=== PATIENT | female | born 1955 | race Caucasian/White ===

== ENCOUNTER 2016-05-29 18:05 | Inpatient (IN) | payer OTHER, MEDICARE ==
[~2016-05-29] VITALS: Ht 167.6 cm; Wt 110.4 kg
--- NOTE | 2016-05-29 18:48 | ED PSYCHIATRIC COMPLAINT ---
History of Present Illness General Chief Complaint: Psychiatric Related Complaint Stated Complaint: + SI Source: patient, family Exam Limitations: no limitations Vital Signs & Intake/Output Vital Signs & Intake/Output Vital Signs Date Time Temp Pulse Resp B/P Pulse O2 O2 Flow FiO2 Ox Delivery Rate 05/29 2024 Room Air 05/29 1811 97.1 100 18 119/78 98 Room Air Allergies Coded Allergies: hydrocodone (UNKNOWN 06/08/15) methylprednisolone (UNKNOWN 06/08/15) morphine (SWELLING 06/08/15) pantoprazole (UNKNOWN 06/08/15) Reconcile Medications No Known Home Medications Triage Note: PT STATES ALL DAY LONG SHE WAS FEELING SUICIDAL AND WAS TRYING TO FIND A WAY TO HANG HERSELF. PT STATES THE FEELINGS HAPPEN ON AND OFF BUT TODAY THEY ARE JUST OVERWHELMING. PT CRYING IN TRIAGE. PT STATES SHE WENT TO GROUP TODAY AND CAN'T REMEMBER ONE THING THAT MADE HER FEEL DOWN. DGT STATES SHE GOES TO GROUP AND TAKES IN ALL OF THE OTHER SAD STORIES AND NEVER EXPRESSES HER OWN AND THEN FEELS WORSE WHEN SHE LEAVES. PT DENIES HI. PT SENT HER DGT A MESSAGE SAYING HOW SHE WAS TRYING TO FIGURE OUT HOW TO HANG HERSELF ALL DAY AND THAT SHE WANTED TO GO TO THE HOSPITAL. Triage Nurses Notes Reviewed? yes HPI: Patient presents with increasing depression and suicidal ideations. Patient goes to [facility] here at [place] and began to think of different ways that she could hang herself. Patient's last admission was in August. Patient denies any homicidal ideations. Patient states that she sits in group and just listens to. Other people and she gets more more depressed. Patient denies any hallucinations. Patient has not attempted to hurt herself. Past History Travel History Traveled to [place] past 21 day No Medical History Any Pertinent Medical History? see below for history Psychiatric: bipolar disease, depression Endocrine: diabetes, hypothyroidism Surgical History Surgical History: non-contributory Psychosocial History What is your primary language Lithuanian Tobacco Use: Never used ETOH Use: denies use Illicit Drug Use: denies illicit drug use Family History Hx Contributory? No Review of Systems Review of Systems Constitutional: Reports: no symptoms. EENTM: Reports: no symptoms. Respiratory: Reports: no symptoms. Cardiovascular: Reports: no symptoms. GI: Reports: no symptoms. Genitourinary: Reports: no symptoms. Musculoskeletal: Reports: no symptoms. Skin: Reports: no symptoms. Neurological/Psychological: Reports: see HPI, depressed. Hematologic/Endocrine: Reports: no symptoms. Immunologic/Allergic: Reports: no symptoms. All Other Systems: Reviewed and Negative Physical Exam Physical Exam General Appearance: well developed/nourished, mild distress Head: atraumatic Eyes: Bilateral: PERRL, EOMI. Ears, Nose, Throat: normal pharynx, normal ENT inspection, hearing grossly normal Neck: normal inspection, supple Respiratory: normal breath sounds Cardiovascular: regular rate/rhythm Gastrointestinal: soft, non-tender Extremities: normal range of motion Neurological/Psychiatric: no motor/sensory deficits, awake, alert, normal mood/ affect, calm, oriented x 3 Appearance/Memory/Insight: appropriate appearance, appropriate insight Behavoir/Eye Contact/Speech: cooperative, normal speech, good eye contact Thoughts/Hallucinations: normal thought pattern, no apparent hallucination Skin: intact, normal color, warm/dry SAD PERSONS Done? CRISIS CONSULT OBTAINED Progress Differential Diagnosis: drug intoxication, drug overdose, drug withdrawal, electrolyte abnormality Plan of Care: Orders Procedure Date/time Status Admit to inpatient psych 05/29 2216 Active Continuous Observation Monitor 05/29 1820 Active URINE DRUGS OF ABUSE 05/29 1820 Complete ETHANOL 05/29 1820 Complete COMPREHENSIVE METABOLIC PANEL 05/29 1820 Complete CBC WITHOUT DIFFERENTIAL 05/29 1820 Complete ED CRISIS PSYCH CONSULT 05/29 1820 Active Laboratory Tests 05/29/162109: Urine Opiates Screen < 100.00, Methadone Screen < 40, Barbiturate Screen < 60, Ur Phencyclidine Scrn < 6.00, Amphetamines Screen < 100, U Benzodiazepines Scrn < 85, Urine Cocaine Screen < 50, Urine Cannabis Screen < 5.00 05/29/161955: Anion Gap 12, Estimated GFR 46 L, BUN/Creatinine Ratio 16.7, Glucose 162 H, Calcium 10.1, Total Bilirubin 0.4, AST 17, ALT 37, Alkaline Phosphatase 100, Total Protein 7.1, Albumin 4.3, Globulin 2.8, Albumin/Globulin Ratio 1.5, CBC w Diff NO MAN DIFF REQ, RBC 4.31, MCV 88.4, MCH 29.4, RDW 13.3, MPV 9.0, Gran % 70.8, Lymphocytes % 21.9, Monocytes % 5.5, Eosinophils % 1.3, Basophils % 0.5, Absolute Granulocytes 8.2 H, Absolute Lymphocytes 2.5, Absolute Monocytes 0.6, Absolute Eosinophils 0.2, Absolute Basophils 0.1, PUBS MCHC 33.2, Serum Alcohol < 10.0 Departure Departure Disposition: STILL A PATIENT Condition: Stable Clinical Impression Primary Impression: Depression Secondary Impressions: Suicidal ideation Referrals: TREY DIEGO MD (PCP/Family) Departure Forms: Customer Survey General Discharge Information Prescriptions: Current Visit Scripts No Known Home Medications Psych Admission Note Psychiatric Admission: I have seen and evaluated YARIEL TRIMBLE. I have also reviewed all the pertinent lab results and diagnostic results. YARIEL TRIMBLE will be admitted to our inpatient Psychiatric unit for treatment and care.
[2016-05-29 20:16] LABS: ABSOLUTE BASOPHIL COUNT 0.1 /CUMM (0.0-0.2); ABSOLUTE EOSINOPHIL COUNT 0.2 /CUMM (0.0-0.7); ABSOLUTE GRANULOCYTE CT 8.2 /CUMM (1.4-6.5); ABSOLUTE LYMPH COUNT 2.5 /CUMM (1.2-3.4); ABSOLUTE MONOCYTE COUNT 0.6 /CUMM (0.10-0.60); BASOPHIL % 0.5 % (0.0-2.0); EOSINOPHIL % 1.3 % (0-5); GRANULOCYTE % 70.8 % (42.2-75.2); HEMATOCRIT 38.1 % (37-47); MEAN CORPUSCULAR HGB 29.4 PG (27.0-31.0); MEAN CORPUSCULAR HGB CONC 33.2 G/DL (33.0-37.0); MEAN CORPUSCULAR VOLUME 88.4 FL (81.0-99.0); PLATELET COUNT 340 /CUMM (130-400); RBC DISTRIBUTION WIDTH 13.3 % (11.5-14.5); RED BLOOD CELL CT 4.31 /CUMM (4.20-5.40); WHITE BLOOD CELL COUNT 11.6 /CUMM (4.8-10.8)
--- NOTE | 2016-05-29 22:40 | ED PSYCH CRISIS CONSULTATION ---
Crisis Consult Basic Assessment Date of Consult: 05/29/16 Responsible Person/Accompanied By: self/daughter Sonali Insurance Authorization: Insurance #1: Insurance name: MEDICARE A Phone number: Policy number: [id number] Group number: Authorization number: ED Provider: Patient's ED Provider: ANG IQBAL,NATALIA Harry Primary Care Physician: Patient's PCP: JOHNATHON IQBAL,TREY Flynn PCP's Current Psychiatrist: Gopal Cruz APRN Chief Complaint: Psychiatric Related Complaint Patient's Quote: I don't want to be here anymore Present Illness: Pt is a 61 yo female presenting at [place] ED this evening accompanied by her daughter with c/o increased depression and suicidal ideation. pt had been texting daughter this afternoon that she was researching how to hang herself. Pt has a hx of several inpatient psychiatric hospitalizations due to suicide attempt. Pt was inpatient at [facility] in 2002 and 2006 and was most recently inpatient at [place] in September 2015. Pt is currently active in [facility] since september 2015. Pt reports chronic on and off SI but past 2 days thoughts to kill self have been strong. she reports feeling depressed, anxious, helpless and hopeless. Pt reports having a lot to live for nikolai having her 3 grandchildren living near by but she continues to think about not 'wanting to be here anymore ". Pt presents as distraught/tearful, alert, cooperative and OX3. Pt denies drug and alcohol use. Pt reports attending group tx today but becomes more depressed when hearing about other patients depressing stories. Pt wants a voluntary admission. Patient's Address: [address] [place] [address] Other Phone Number: Who Do You Live With? Patient/Self Family/Informants Interviewed: daughter sonali [phone]. Crisis left message on her answering machine. Allergies - Coded Allergies: hydrocodone (UNKNOWN 06/08/15) methylprednisolone (UNKNOWN 06/08/15) morphine (SWELLING 06/08/15) pantoprazole (UNKNOWN 06/08/15) Current Medications - No Known Home Medications Laboratory Results: Laboratory Tests 05/29/16 2110: Urine Opiates Screen < 100.00, Methadone Screen < 40, Barbiturate Screen < 60, Ur Phencyclidine Scrn < 6.00, Amphetamines Screen < 100, U Benzodiazepines Scrn < 85, Urine Cocaine Screen < 50, Urine Cannabis Screen < 5.00 05/29/161955: Anion Gap 12, Estimated GFR 46 L, BUN/Creatinine Ratio 16.7, Glucose 162 H, Calcium 10.1, Total Bilirubin 0.4, AST 17, ALT 37, Alkaline Phosphatase 100, Total Protein 7.1, Albumin 4.3, Globulin 2.8, Albumin/Globulin Ratio 1.5, CBC w Diff NO MAN DIFF REQ, RBC 4.31, MCV 88.4, MCH 29.4, RDW 13.3, MPV 9.0, Gran % 70.8, Lymphocytes % 21.9, Monocytes % 5.5, Eosinophils % 1.3, Basophils % 0.5, Absolute Granulocytes 8.2 H, Absolute Lymphocytes 2.5, Absolute Monocytes 0.6, Absolute Eosinophils 0.2, Absolute Basophils 0.1, PUBS MCHC 33.2, Serum Alcohol < 10.0 Past History Past Medical History Psychiatric: bipolar disease, depression Endocrine: diabetes, hypothyroidism Past Surgical History Surgical History: non-contributory Psychosocial History Strengths/Capabilities: active with grandchildren/engaged with [facility] Psychiatric Treatment History Psych Treatment Psychiatric Treatment Yes Inpatient Treatment Yes Outpatient Treatment Yes Location of Treatment [facility] Reason for Treatment Major depression, SI/attempts hx Dates of Treatment [facility] 2002, 2006. [place] September 2015; [facility] September 2015-presen Response to Treatment chronic on and off SI. recent increase in depression, anxiety and hopelessness. Diagnosis by History: Major depressive D/o Substance Use/Abuse History Drug Use/Abuse Substances Used/Abused No Substance Abuse Treatment Substance Abuse Treatment Past Substance Abuse [place] No Comments: pt denies drug and alcohol use. Current Mental Status Mental Status Orientation: Person, Place, Situation Affect: Depressed Speech: WNL Neuro-vegetative: Anhedonia, Appetite Decreased, Energy Decreased, Helpless, Sleep Disturbance Appearance Appearance- Dress/Hygiene: hospital scrubs. sitting up in bed during consult. tearful. Good eye contact Behaviors Thought Process: WNL Thought Content: WNL Memory: WNL Insight: Fair SI/HI Risk Assessment Past Suicidal Ideation/Attempts Yes Current Suicidal Ideation/Att Yes Past Homicidal Ideation/Att: No Current Homicidal Ideation/Attempts No Degree of Intent: States Intent Danger To: Self Gravely Disabled: Poor Impulse Control, Poor Judgment Risk Factors: chronic/serious med cond., high anxiety/distress, history of suicide atmpts, SA/MH hospitalized, isolate/no social support, poor impulse control, lives alone Lethality Ratin PTSD Checklist PTSD Done? patient declined ED Management Sitter: Yes Restraints: No DSM5/PS Stressors/Medical Prob Diagnosis' (DSM 5, Stressors, Medical): Major Depressive D/O (F33.2) diabetis thyroid Current GAF: 25 Comments: pt reports increased suicidal thoughts past 2 days. pt reports plan to hang her self. pt reports "I have so much to live for and i don't want to live' Departure Disposition Psych Medical Clearance Date: 05/29/16 Medically Cleared at: 2129 Time Started: 2134 Time Ended: 2214 Psychiatrist Consulted: Berna IQBAL,Ben Date Disposition Established: 05/29/16 Time Disposition Established: 2219 Plan for Disposition - Modality: Inpatient Psychiatry Facility: [facility] Rationale for Disposition: Pt to be admitted to [facility] due to active suicidal ideation. pt researching today how to hang self. Pt has multiple suicide attempts by hx. Type of IP Admission: PEC Referrals JOHNATHON IQBAL,TREY Flynn (PCP/Family)
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
[2016-05-30] VITALS: BP 117/69
[2016-05-30] MEDS ORDERED: LISINOPRIL-HCT1 EAC2 PO (00:17)
[2016-05-30] MEDS ORDERED: CLONAZEPAM0.5 M2 PO (00:18)
[2016-05-30] MEDS ORDERED: PERPHENAZINE8 M1 PO (00:20)
[2016-05-30] MEDS ORDERED: PERPHENAZINE4 M1 PO (00:21)
[2016-05-30] MEDS ORDERED: LAMOTRIGINE150 M1 PO (00:22)
[2016-05-30] MEDS ORDERED: VALACYCLOVIR500 M1 PO (00:23)
[2016-05-30] MEDS ORDERED: LEVOTHYROXINE125 MCG PO (00:24)
[2016-05-30] MEDS ORDERED: GLIMEPIRIDE4 M1 PO (00:24)
[2016-05-30] MEDS ORDERED: METFORMIN HCL1000 M1 PO (00:25)
[2016-05-30] MEDS ORDERED: ANASTROZOLE1 M1 PO (00:26)
[2016-05-30] MEDS ORDERED: PRAVASTATIN SOD40 M2 PO (00:27)
[2016-05-30 07:57] VITALS: BP 154/70
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
[2016-05-30 12:22] VITALS: BP 127/66
--- NOTE | 2016-05-30 13:06 | History & Physical ---
General Information and HPI MD Statement: I have seen and personally examined YARIEL TRIMBLE and documented this H&P. The patient is a 61 year old F who presented with a patient stated chief complaint of "feeling suicidal all day". Source of Information: patient Exam Limitations: no limitations History of Present Illness: 61-year-old white female with history of depression and suicidal attempts and ideations in the past her last admission to an inpatient unit was in September 2015 since then going to [facility] for meetings often and she has had this Cissell feelings but for the last day also a much more intense and she was trying to find a way to hang herself or overdose reason she came to the ER where she was crying, she was evaluated and admitted Allergies/Medications Allergies: Coded Allergies: hydrocodone (UNKNOWN 06/08/15) methylprednisolone (UNKNOWN 06/08/15) morphine (SWELLING 06/08/15) pantoprazole (UNKNOWN 06/08/15) Home Med list Anastrozole 1 MG TABLET 1 MG PO DAILY IMMUNOSUPPRESSANT (Reported) Clonazepam 0.5 MG TABLET 0.5 MG PO 7:30 AM, & 4:30 PM ANXIETY (Reported) Glimepiride 4 MG TABLET 4 MG PO DAILY DIABETES (Reported) Lamotrigine 150 MG TABLET 150 MG PO QHS MENTAL HEALTH (Reported) Levothyroxine Sodium 125 MCG TABLET 125 MCG PO DAILY THYROID PROBLEMS ( Reported) Lisinopril/Hydrochlorothiazide (Lisinopril-Hctz 10-12.5 MG Tab) 10 MG-12.5 MG TABLET 1 TAB PO DAILY HIGH BLOOD PRESSURE (Reported) Metformin HCl 1,000 MG TABLET 1,000 MG PO 0800 & 1700 DIABETES (Reported) Perphenazine 8 MG TABLET 8 MG PO QHS MENTAL HEALTH (Reported) Perphenazine 4 MG TABLET 4 MG PO DAILY MENTAL HEALTH (Reported) Pravastatin Sodium 40 MG TABLET 40 TAB PO QPM HIGH CHOLESTROL (Reported) Valacyclovir HCl (Valacyclovir) 500 MG TABLET 500 MG PO DAILY SKIN PROBLEMS ( Reported) Compliance With Home Meds: GOOD Past History Travel History Traveled to [place] past 21 day No Medical History Neurological: NONE EENT: NONE Cardiovascular: hypertension Respiratory: NONE Gastrointestinal: NONE Hepatic: NONE Renal: NONE Musculoskeletal: NONE Psychiatric: bipolar disease, depression Endocrine: diabetes, hypothyroidism Blood Disorders: NONE Cancer(s): breast cancer 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 Home ETOH Use: denies use Illicit Drug Use: denies illicit drug use Employment History Employment Disability Review of Systems Review of Systems Constitutional: Reports: see HPI. Exam & Diagnostic Data Last 24 Hrs of Vital Signs/I&O Vital Signs Date Time Temp Pulse Resp B/P Pulse O2 O2 Flow FiO2 Ox Delivery Rate 05/30 1222 92 127/66 05/30 0803 97.6 93 16 154/70 05/30 0757 97.6 93 154/70 05/30 0000 96.8 84 117/69 05/29 2247 97.9 91 16 128/67 98 Room Air 05/29 2024 Room Air 05/29 1811 97.1 100 18 119/78 98 Room Air Intake & Output 05/30 1600 05/30 0800 05/30 0000 Intake Total Output Total Balance Patient 243 lb 243 lb Weight Physical Exam General Appearance Alert, Oriented X3, Cooperative, No Acute Distress Skin No Rashes HEENT Atraumatic, PERRLA, EOMI, Mucous Membr. moist/pink Neck Supple, No JVD Lymphatic Axillary nl, Cervical nl Cardiovascular Regular Rate, with a murmur Lungs Clear to Auscultation Abdomen Normal Bowel Sounds, Soft, No Tenderness, No Hepatospenomegaly, No Masses Neurological Exam Findings: Normal Gait, Normal Speech, Strength at 5/5 X4 Ext, Normal Tone, Sensation Intact, Cranial Nerves 3-12 NL, Reflexes 2+ Cranial Nerves II through XII: Intact Extremities No Edema, Normal Pulses, No Tenderness/Swelling Last 24 Hrs of Labs/Joseph: Laboratory Tests 05/29/162109: Urine Opiates Screen < 100.00, Methadone Screen < 40, Barbiturate Screen < 60, Ur Phencyclidine Scrn < 6.00, Amphetamines Screen < 100, U Benzodiazepines Scrn < 85, Urine Cocaine Screen < 50, Urine Cannabis Screen < 5.00 05/29/161955: Anion Gap 12, Estimated GFR 46 L, BUN/Creatinine Ratio 16.7, Glucose 162 H, Hemoglobin A1c 7.1 H, Calcium 10.1, Total Bilirubin 0.4, AST 17, ALT 37, Alkaline Phosphatase 100, Total Protein 7.1, Albumin 4.3, Globulin 2.8, Albumin/ Globulin Ratio 1.5, Triglycerides 172 H, Cholesterol 125, LDL Cholesterol, Calc 58 L, HDL Cholesterol 33 L, Cholesterol/HDL Ratio 4, TSH 0.454, Free T4 1.42, Thyroxine (T4) 10.4, CBC w Diff NO MAN DIFF REQ, RBC 4.31, MCV 88.4, MCH 29.4, RDW 13.3, MPV 9.0, Gran % 70.8, Lymphocytes % 21.9, Monocytes % 5.5, Eosinophils % 1.3, Basophils % 0.5, Absolute Granulocytes 8.2 H, Absolute Lymphocytes 2.5, Absolute Monocytes 0.6, Absolute Eosinophils 0.2, Absolute Basophils 0.1, PUBS MCHC 33.2, Serum Alcohol < 10.0 Assessment/Plan As Ranked By This Provider Problem List: 1. Depression 2. Suicidal ideation Miscellaneous Miscellaneous Documentation Attending Case Discussed With: MIC IQBAL,GIO Sol Primary Care Physician: TREY DIEGO MD A Patient sees these Specialists Psychiatry Level of Patient Care: ERIK Tamayo Consults Needed: Consulting Specialty: Psychiatry Consulting Physician: Gio Coronel MD Reason for Consult: depression and suicidal ideations
[2016-05-30 15:56] VITALS: BP 139/67
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
[2016-05-30 19:34] VITALS: BP 125/56
[2016-05-31 07:42] VITALS: BP 108/67
[2016-05-31 12:21] VITALS: BP 147/67
--- NOTE | 2016-05-31 14:31 | SOCIAL WORKER TX PLAN PSYCH ---
Treatment Plan - Please Document: - Evidence that there is ongoing collaboration between - the patient and the interdisciplinary team, - including the patient's active participation and - responsibility for engaging in the treatment regimen, - and that the treatment plan is individualized and - relevant to the patient's conditions. - Treatment plan should reflect documentation indicating - that all active therapeutic efforts are included. Strengths/Capabilities: active with grandchildren/engaged with juan carlos OP Patient Identified Trmt Goals: "I may need a change in medication" Discharge Plan: [facility] with return to home Problem/Goals #1 Problem #1: depression Goal (Short Term): Patient will explore medication changes to help stabilize mood and SI Goal (Senior Living): patient will report diminished thoughts of SI and be able to return home safely. Interventions: patient will be offered medication management with the psychiatrist, groups on symptom management, coping skills, goals group, relaxation, art therapy, accupuncture. Over Short And Damage Clerk will discuss things that make life worth living, hold family meeting and assist with aftercare planning. Modalities: group/ individual DSM5/PS Stressors/Medical Prob Diagnosis' (DSM 5, Stressors, Medical): Major Depressive D/O (F33.2) diabetis thyroid Current GAF: 25 Treatment Team - Responsibilities of members of the treatment team include: - Medication Management- MD or CHIEF OPERATIONS OFFICER - Medication Administration and Monitoring- Nurse - Group Therapy- Occupational Therapist - 1:1 Therapy,Disch Planning,family involvement-Over Short And Damage Clerk
--- NOTE | 2016-05-31 14:31 | SOCIAL WORKER PROG NOTE PSYCH ---
Social Work Progress Note Progress Note Kateryna presented as very tearful and depressed today when we met. She stated she was feeling very down this past week and that's why she wanted to hang herself. She said if she could have figured out a way to do it, she would have. She continues to have thoughts about not wanting to be here, but no specific plan. She feels safe here and contracts for safety. She has a couple of past suicide attempts. One in 2004 and in 2011, both by OD of pills. She lives alone, but spends alot of time with her daughter Windy and her family. Her daughter lives close by. She talked about feeling like a burden to her daughter. She said she is at her house daily, except weekends. She reports weekends being the hardest because she's alone. She reports having difficulty concentrating and diminished interest in hobbies. She talked about interactions with other folks at her apt. building and described alot of "drama" that she doesn't like to get caught up in. She tends to isolate alot. She finds herself getting irritated with others more easily. One goal that she is recently trying to work on in outpatient is getting back to going to sabianism. She would like to go to a sabianism she found, but is scared that someone will ask her how she is doing and she will start to cry. She would find that embarrassing, so she is avoiding it for now. She also fears rejection from others. She is hoping that a change in medication will help and she is open to trying [place]. I told her I would contact her daughter for a family meeting and set something up for Friday if possible. Called Windy Gleason (daughter) and left a message.
[2016-05-31 15:41] VITALS: BP 125/66
--- NOTE | 2016-05-31 16:02 | CP SOUTH PROGRESS NOTE PSYCH ---
Psych (Inpt) Progress Note Progress Note Include the following elements, when applicable: Involvement in the active treatment of the patient with behavioral observations of the patient and the patient's response to the treatment. Review of the ongoing treatment process in the context of the treatment plan. Indication of how multi-disciplinary staff members are carrying out the treatment plan. Plans for future interventions and recommendations for revision of the treatment plan. Liaison with other physicians/providers. Progress Note: PSYCHIATRIST NOTE, 05/31/2016: I discussed this patient's progress thus far, current mental status, treatment and discharge planning with staff team today in the daily morning ITTM and also met with her again myself in individual session. Patient noted feeling a little better, more hopeful, but is still depressed, anergic. Patient denied any side effects, overstimulation on initial low dose of Wellbutrin. She had denied feeling uncomfortably over-activated, shaky/tremulous, said she felt helped by it in recent past but dose may have been too high; we went over again the risks of precipitating hypomania, mood cycling, sleep difficulties, etc., and agreed to keep dose at current low level over the coming weekend. She had tolerated initial 150mg doses of Liithium and agreed to increase for augmentation purposes over the coming weekend to 150mg 3x/day with level in AM .
[2016-05-31 19:46] VITALS: BP 117/59
[2016-06-01 07:47] VITALS: BP 140/77
[2016-06-01 12:07] VITALS: BP 125/63
[2016-06-01 16:00] VITALS: BP 120/70
--- NOTE | 2016-06-01 17:07 | CP SOUTH PROGRESS NOTE PSYCH ---
Psych (Inpt) Progress Note Progress Note Include the following elements, when applicable: Involvement in the active treatment of the patient with behavioral observations of the patient and the patient's response to the treatment. Review of the ongoing treatment process in the context of the treatment plan. Indication of how multi-disciplinary staff members are carrying out the treatment plan. Plans for future interventions and recommendations for revision of the treatment plan. Liaison with other physicians/providers. Progress Note: Pt requested to be tapered off the klonopin. She notes that she is "better good " overall with improved mood. Denies SI or HI. Slept well. Current Medications Sig/Brigid Start time Last Medication Dose Route Stop Time Status Admin Anastrozole 1 MG DAILY 05/30 1000 AC 06/01 PO 0745 Bupropion HCl 100 MG 05/31 08 AC 06/01 PO 0745 Clonazepam 0.5 MG .[4:30PM] 06/02 1630 UNVr PO 06/09 1629 Clonazepam 0.25 MG .[AT 730AM] 06/01 1715 UNVr PO 06/08 1714 Clonazepam 0.5 MG 7:30 AM, & 4:30 PM 05/30 729 DC 06/01 PO 06/06 0729 1637 Glimepiride 4 MG 05/30 AC 06/01 PO 0743 Lamotrigine 150 MG 05/30 0115 AC 05/31 PO 2113 Levothyroxine Sodium 0.125 MG DAILY AC 05/30 07 AC 06/01 PO 0633 Lisinopril 10 MG 05/30 08 AC 06/01 PO 0744 [place] Carbonate 150 MG 0800,1400,06/02 08 AC PO [place] Carbonate 150 MG 0800,06/01 0800 AC 06/01 PO 06/01 2000 0743 [place] Carbonate 150 MG ONCE ONE 06/01 1999 DC 05/31 PO 05/31 Metformin HCl 1,000 MG 0800 & 1700 05/30 08 AC 06/01 PO 1637 Perphenazine 4 MG 05/30 08 AC 06/01 PO 0744 Perphenazine 8 MG 05/30 010 AC 05/31 PO 2114 Perphenazine 2 MG Q6H PRN 05/30 010 AC PO Pravastatin Sodium 40 MG 05/30 220 AC 05/31 PO 2114 Valacyclovir HCl 500 MG DAILY 05/30 1000 AC 06/01 PO 0745 Laboratory Tests 05/29 Chemistry Sodium (137 - 145 mmol/L) 134 L Potassium (3.5 - 5.1 mmol/L) 4.5 Chloride (98 - 107 mmol/L) 95 L Carbon Dioxide (22 - 30 mmol/L) 27 Anion Gap (5 - 16) 12 BUN (7 - 17 mg/dL) 20 H Creatinine (0.5 - 1.0 mg/dL) 1.2 H Estimated GFR (>60 ml/min) 46 L BUN/Creatinine Ratio (7 - 25 %) 16.7 Glucose (65 - 99 mg/dL) 162 H Hemoglobin A1c (4.2 - 5.8 %) 7.1 H Calcium (8.4 - 10.2 mg/dL) 10.1 Total Bilirubin (0.2 - 1.3 mg/dL) 0.4 AST (14 - 36 U/L) 17 ALT (9 - 52 U/L) 37 Alkaline Phosphatase (<127 U/L) 100 Total Protein (6.3 - 8.2 g/dL) 7.1 Albumin (3.5 - 5.0 g/dL) 4.3 Globulin (1.9 - 4.2 gm/dL) 2.8 Albumin/Globulin Ratio (1.1 - 2.2 %) 1.5 Triglycerides (<150 mg/dL) 172 H Cholesterol (<200 MG/DL) 125 LDL Cholesterol, Calc (65 - 129 mg/dL) 58 L HDL Cholesterol (40 - 60 mg/dL) 33 L Cholesterol/HDL Ratio (0.00 - 4.23 %) 4 TSH (0.270 - 4.200 uIU/mL) 0.454 Free T4 (0.64 - 1.79 ng/dL) 1.42 Thyroxine (T4) (4.5 - 10.9 ug/dL) 10.4 Hematology CBC w Diff NO MAN DIFF REQ WBC (4.8 - 10.8 /CUMM) 11.6 H RBC (4.20 - 5.40 /CUMM) 4.31 Hgb (12.0 - 16.0 G/DL) 12.7 Hct (37 - 47 %) 38.1 MCV (81.0 - 99.0 FL) 88.4 MCH (27.0 - 31.0 PG) 29.4 RDW (11.5 - 14.5 %) 13.3 Plt Count (130 - 400 /CUMM) 340 MPV (7.4 - 10.4 FL) 9.0 Gran % (42.2 - 75.2 %) 70.8 Lymphocytes % (20.5 - 51.1 %) 21.9 Monocytes % (1.7 - 9.3 %) 5.5 Eosinophils % (0 - 5 %) 1.3 Basophils % (0.0 - 2.0 %) 0.5 Absolute Granulocytes (1.4 - 6.5 /CUMM) 8.2 H Absolute Lymphocytes (1.2 - 3.4 /CUMM) 2.5 Absolute Monocytes (0.10 - 0.60 /CUMM) 0.6 Absolute Eosinophils (0.0 - 0.7 /CUMM) 0.2 Absolute Basophils (0.0 - 0.2 /CUMM) 0.1 PUBS MCHC (33.0 - 37.0 G/DL) 33.2 Toxicology Urine Opiates Screen (>2000 NG/ML) < 100.00 Methadone Screen (>300 NG/ML) < 40 Barbiturate Screen (>200 NG/ML) < 60 Ur Phencyclidine Scrn (>25 NG/ML) < 6.00 Amphetamines Screen (>1000 NG/ML) < 100 U Benzodiazepines Scrn (>200 NG/ML) < 85 Urine Cocaine Screen (>300 NG/ML) < 50 Urine Cannabis Screen (>50 NG/ML) < 5.00 Serum Alcohol (<10 MG/DL) < 10.0 Vital Signs Date Time Temp Pulse Resp B/P Pulse O2 O2 Flow FiO2 Ox Delivery Rate 06/01 1600 95 120/70 06/01 1207 83 125/63 06/01 0747 97.8 91 140/77 06/01 0744 98.7 90 16 117/59 05/31 1946 98.7 90 117/59 MSE Appears as stated age. Cooperative behavior, good, appropriate eye contact. Nl speech rate and prosody. No psychomotor retardation or agitation. Mood fine Affect euthymic, constricted, appropriate, non-liable. Linear and goal directed thought process. Denies SI or HI. Does not appear to be responding to internal stimuli. Denies AVHs, paranoia, or delusions. I/J: limited A/P: Pt with MDD with improved mood overall. - Taper klonopin from 0.5mg BID (at 730 and 430) to 0.25mg daily and 0.5mg at 430 - Continue current medication regimen - Repeat labs as slight elevated CBC, elevated Cr at recent lab draw
[2016-06-01 19:26] VITALS: BP 123/62
[2016-06-02 07:32] LABS: ABSOLUTE BASOPHIL COUNT 0 /CUMM (0.0-0.2); ABSOLUTE EOSINOPHIL COUNT 0.1 /CUMM (0.0-0.7); ABSOLUTE GRANULOCYTE CT 4.2 /CUMM (1.4-6.5); ABSOLUTE LYMPH COUNT 1.9 /CUMM (1.2-3.4); ABSOLUTE MONOCYTE COUNT 0.4 /CUMM (0.10-0.60); BASOPHIL % 0.5 % (0.0-2.0); EOSINOPHIL % 2.1 % (0-5); HEMATOCRIT 33.2 % (37-47); MEAN CORPUSCULAR HGB 29.9 PG (27.0-31.0); MEAN CORPUSCULAR HGB CONC 33.7 G/DL (33.0-37.0); MEAN CORPUSCULAR VOLUME 88.7 FL (81.0-99.0); PLATELET COUNT 259 /CUMM (130-400); RBC DISTRIBUTION WIDTH 13.5 % (11.5-14.5); RED BLOOD CELL CT 3.74 /CUMM (4.20-5.40); WHITE BLOOD CELL COUNT 6.7 /CUMM (4.8-10.8)
[2016-06-02 07:39] VITALS: BP 132/70
--- NOTE | 2016-06-02 10:49 | CP SOUTH PROGRESS NOTE PSYCH ---
Psych (Inpt) Progress Note Progress Note Include the following elements, when applicable: Involvement in the active treatment of the patient with behavioral observations of the patient and the patient's response to the treatment. Review of the ongoing treatment process in the context of the treatment plan. Indication of how multi-disciplinary staff members are carrying out the treatment plan. Plans for future interventions and recommendations for revision of the treatment plan. Liaison with other physicians/providers. Progress Note: Pt seen sitting in her room reading on her bed. Initally, she noted that she was fine. When pressed as to how feeling more recently and concerns s/p hospitalization, she became tearful. She stated that she likes being here because she feels that she "can't hurt myself here." However, when discharged, she is sacred that will having +SI again. She plans on leaning on her supports in her Psychiatrist and therapist, that she trusts. In addition, she is close with her daughter and finds her to be a source of support. Denies SI or HI, active or passive. Current Medications Sig/Brigid Start time Last Medication Dose Route Stop Time Status Admin Anastrozole 1 MG DAILY 05/30 1000 AC 06/02 PO 0819 Bupropion HCl 100 MG 05/31 08 AC 06/02 PO 0819 Clonazepam 0.5 MG 1630 06/02 1630 AC PO 06/09 1629 Clonazepam 0.25 MG 06/02 AC 06/02 PO 06/09 0729 0818 Clonazepam 0.5 MG 7:30 AM, & 4:30 PM 05/30 07 DC 06/01 PO 06/06 0729 1637 Glimepiride 4 MG 05/30 08 AC 06/02 PO 0818 Lamotrigine 150 MG 2200 05/30 0115 AC 06/01 PO 2111 Levothyroxine Sodium 0.125 MG DAILY AC 05/30 07 AC 06/02 PO 0631 Lisinopril 10 MG 05/30 08 AC 06/02 PO 0819 [place] Carbonate 150 MG 0800,1399,06/02 AC 06/02 PO 0819 [place] Carbonate 150 MG 0800,06/01 0800 DC 06/01 PO 06/01 Metformin HCl 1,000 MG 0800 & 1700 05/31 799 AC 06/02 PO 0819 Perphenazine 4 MG 05/30 AC 06/02 PO 818 Perphenazine 8 MG 05/30 AC 06/01 PO 2110 Perphenazine 2 MG Q6H PRN 05/30 99 AC PO Pravastatin Sodium 40 MG 05/30 AC 06/01 PO 2110 Valacyclovir HCl 500 MG DAILY 05/30 1000 AC 06/02 PO 818 Laboratory Tests 06/02 624 Hematology CBC w Diff NO MAN DIFF REQ WBC (4.8 - 10.8 /CUMM) 6.7 RBC (4.20 - 5.40 /CUMM) 3.74 L Hgb (12.0 - 16.0 G/DL) 11.2 L Hct (37 - 47 %) 33.2 L MCV (81.0 - 99.0 FL) 88.7 MCH (27.0 - 31.0 PG) 29.9 RDW (11.5 - 14.5 %) 13.5 Plt Count (130 - 400 /CUMM) 259 MPV (7.4 - 10.4 FL) 9.0 Gran % (42.2 - 75.2 %) 63.0 Lymphocytes % (20.5 - 51.1 %) 28.0 Monocytes % (1.7 - 9.3 %) 6.4 Eosinophils % (0 - 5 %) 2.1 Basophils % (0.0 - 2.0 %) 0.5 Absolute Granulocytes (1.4 - 6.5 /CUMM) 4.2 Absolute Lymphocytes (1.2 - 3.4 /CUMM) 1.9 Absolute Monocytes (0.10 - 0.60 /CUMM) 0.4 Absolute Eosinophils (0.0 - 0.7 /CUMM) 0.1 Absolute Basophils (0.0 - 0.2 /CUMM) 0 PUBS MCHC (33.0 - 37.0 G/DL) 33.7 Vital Signs Date Time Temp Pulse Resp B/P Pulse O2 O2 Flow FiO2 Ox Delivery Rate 06/02 818 83 132/70 06/02 0739 97.6 83 132/70 06/01 1926 98.4 92 123/62 04/ 1600 95 120/70 04 1207 83 125/63 MSE Appears as stated age. Cooperative behavior, good, appropriate eye contact. Nl speech rate and prosody. No psychomotor retardation or agitation. Mood fine Affect euthymic then became sad and tearful, constricted, appropriate, non- liable. Linear and goal directed thought process. Denies SI or HI. Does not appear to be responding to internal stimuli. Denies AVHs, paranoia, or delusions. I/J: limited A/P: Pt with MDD with some poor mood, though improved. Concern as few supports and risk of worsening depression and SI. - Taper klonopin from 0.5mg BID (at 730 and 430) to 0.25mg daily and 0.5mg at 430, first day 06/02 - White count improved though H/H slightly low, consider Fe studies Chem & LFT pending - Family meeting may be helpful as will be primary support - May benefit from IOP to increase socialization and supports - Continue current medication regimen
[2016-06-02 12:09] VITALS: BP 128/60
[2016-06-02 15:42] VITALS: BP 123/64
[2016-06-02 20:08] VITALS: BP 128/68
[2016-06-03 07:35] VITALS: BP 144/67
[2016-06-03 08:16] LABS: LITHIUM 0.3 mmol/L (0.6-1.2)
[2016-06-03 12:24] VITALS: BP 121/63
--- NOTE | 2016-06-03 15:41 | SOCIAL WORKER PROG NOTE PSYCH ---
Social Work Progress Note Progress Note Kateryna's daughter Windy came in for a family meeting today. We also phone conferenced in her son Moris. Kateryna presents as very easily tearful, she cried several times during the meeting. She said she feel anxious about wanting to return home soon. I asked what was different? She said "I'm not having thoughts to kill myself." She is still having some negative thoughts about not deserving to be happy and that people don't like her. She reports having a good weekend and a good visit with her daughter and grandchildren. Her daugter was questioning why she was taken off the [place] and Wellbutrin and now put back on it. Kateryna reported tremors from [place] in the past, but doesn't really remember alot of what happened on the H[place] because she was doing ECT. Talked quite a bit about things to get involved with socially and the importance of having outside things to do and people to see outside of Windy's family. Kateryna continues to say that she wants to try chuch on Friday. Windy thought that volunteering to read at her granddaughter's school might be nice. She also mentioned getting into [employer]. She has to be 62 to be a member at the senior center, apparently she has looked into that already. Talked about IOP as a possible aftercare plan. Kateryna was adamant that she could not do IOP. She doesn 't feel that listening to others in group is helpful to her. She really wants to continue in outpatient and get therapy with Carisa at [facility]. She said Carisa usually sees her every other week. Not sure if Carisa would be able to see her weekly? Kateryna and her sister in [place] usually talk frequently throughout the week. I asked if her sister could call her daily for check in's. Windy and her sister seem to be the people that she would reach out to most if she felt like hurting herself. Kateryna is advocating to leave tomorrow. I told her we would discuss if further as a team.
[2016-06-03 16:02] VITALS: BP 123/67
--- NOTE | 2016-06-03 16:09 | CP SOUTH PROGRESS NOTE PSYCH ---
Psych (Inpt) Progress Note Progress Note Include the following elements, when applicable: Involvement in the active treatment of the patient with behavioral observations of the patient and the patient's response to the treatment. Review of the ongoing treatment process in the context of the treatment plan. Indication of how multi-disciplinary staff members are carrying out the treatment plan. Plans for future interventions and recommendations for revision of the treatment plan. Liaison with other physicians/providers. Progress Note: PSYCHIATRIST NOTE, 06/03/2016: I discussed this patient's progress to date, current mental status, treatment and discharge planning with staff team today in the daily morning ITTM and also met with her again myself in individual session. Patient had a family meeting with Leti Vallecillo, GAS ADJUSTER, and daughter; both Ms. Vallecillo and patient herself noted she was repeatedly tearful in the meeting, disappointed that daughter did not think her "ready to go home," though expressing her understanding and appreciation of daughter's concern during our meeting later in the day during which patient was also tearful. Serum [place] level this morning was only 0.3mEq/L; patient agreed to increasing dose to 600mg/day as of tonight, denying any shakiness/tremor or other side effects to date. Patient also agreed to increasing dose of Wellbutrin SR tomorrow morning from 100mg to 150mg/day. We will closely monitor for any tremulousness, overstimulation, etc. Patient told me daughter is "bringing in my grandkids tomorrow," very happy about this. Unfortunately, patient continues to be resistive to attending IOP; I am afraid that at least in part her reluctance is contributed to by the negativism associated with her depression ('nothing works, nothing helps...')
[2016-06-03 19:43] VITALS: BP 134/69
[2016-06-04 08:24] VITALS: BP 131/79
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
[2016-06-04 12:29] VITALS: BP 134/66
[2016-06-04 16:01] VITALS: BP 142/67
--- NOTE | 2016-06-04 17:56 | CP SOUTH PROGRESS NOTE PSYCH ---
Psych (Inpt) Progress Note Progress Note Include the following elements, when applicable: Involvement in the active treatment of the patient with behavioral observations of the patient and the patient's response to the treatment. Review of the ongoing treatment process in the context of the treatment plan. Indication of how multi-disciplinary staff members are carrying out the treatment plan. Plans for future interventions and recommendations for revision of the treatment plan. Liaison with other physicians/providers. Progress Note: PSYCHIATRIST NOTE, 06/04/2016: I discussed this patient's progress to date, current mental status, treatment and discharge planning with staff team today in the daily morning ITTM and also met with her again myself in individual session. Dose of [place] has been increased to 600mg/day yesterday, and patient will have [place] level tomorrow AM, 06/05/2016; there are thus far no side effects, no G.I. upset, diarrhea, etc., and no tremor. She denied any side effects, shakiness, jitteriness on the increased dose of Wellbutrin SR (150mg/day). Patient told me she felt a little better today, not anxious and "a little more even;" this is a particularly good sign and especially because I have also been tapering away her Klonopin; she will receive last dose of 0.25mg in AM. Doses of Trilafon and Lamictal have been constant; over time it may be possible on an outpatient basis to taper Trilafon and make some upward adjustment in dose of Lamictal (the latter in order to provide better prophylaxis of depression). Patient continues to be pleasant and cooperative, a popular member of the patient community though she rarely gives herself any credit for that (but is working on reframing/ reversing her negative "self-talk").
[2016-06-04 20:05] VITALS: BP 126/65
[2016-06-05 07:44] VITALS: BP 127/79
[2016-06-05 12:24] VITALS: BP 117/68
--- NOTE | 2016-06-05 15:24 | CP SOUTH PROGRESS NOTE PSYCH ---
Psych (Inpt) Progress Note Progress Note Include the following elements, when applicable: Involvement in the active treatment of the patient with behavioral observations of the patient and the patient's response to the treatment. Review of the ongoing treatment process in the context of the treatment plan. Indication of how multi-disciplinary staff members are carrying out the treatment plan. Plans for future interventions and recommendations for revision of the treatment plan. Liaison with other physicians/providers. Progress Note: PSYCHIATRIST NOTE, 06/05/2016: I discussed this patient's progress to date, current mental status, treatment and discharge planning with staff team today in the daily morning ITTM and also met with her again myself in individual session. Serum [place] level was already 0.5mEq/L this morning on dose of [place] titrated slowly up to 600mg /day; patient shows no S/S of and denies any [place]-related side effects, tremor, shakiness, etc., and is willing to continue trial; however, given possible past sensitivity at higher doses of [place] I will not increase dose at this time but would recommend close monitoring on current dose as outpatient for any tremor or other side effects, versus clinical benefit at this dose level and not increase dose unless response to [place] augmentation has clearly been suboptimal at current dose. Patient also tolerating Wellbutrin SR at 150mg/day, and I would advise similiar caution in further upward dose titration unless there is no a full clinicial response at current dose level and in that case to proceed slowly with close monitoring for side effects, in particular shakiness, overactivation, negative effect on sleep. Patient is still refusing to consider attending [facility] but arrangements are being worked on with social work to increase outpatient supports; I also was able to get patient to promise that if she feeling herself slipping backwards consistently rather than getting better as outpatient, she will reconsider entering treatment at [facility].
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
[2016-06-05 15:51] VITALS: BP 125/72
[2016-06-05 19:39] VITALS: BP 136/69
[2016-06-06 07:37] VITALS: BP 137/68
[2016-06-06 12:09] VITALS: BP 135/68
[2016-06-06] MEDS ORDERED: LAMICTAL100 M2 PO (12:50)
[2016-06-06] MEDS ORDERED: PERPHENAZINE8 M1 PO (12:51)
[2016-06-06] MEDS ORDERED: BUPROPION HCL150 M4 PO (12:51)
[2016-06-06] MEDS ORDERED: PERPHENAZINE2 M1 PO (12:52)
[2016-06-06] MEDS ORDERED: LITHIUM CARBON300 M4 PO (12:52)
--- NOTE | 2016-06-06 15:17 | CP SOUTH PROGRESS NOTE PSYCH ---
Psych (Inpt) Progress Note Progress Note Include the following elements, when applicable: Involvement in the active treatment of the patient with behavioral observations of the patient and the patient's response to the treatment. Review of the ongoing treatment process in the context of the treatment plan. Indication of how multi-disciplinary staff members are carrying out the treatment plan. Plans for future interventions and recommendations for revision of the treatment plan. Liaison with other physicians/providers. Progress Note: PSYCHIATRIST NOTE (DISCHARGE), 06/06/2016: I discussed this patient's progress to date, current mental status, treatment and discharge plans with staff team today in the daily morning ITTM and also met with her again myself in individual session prior to discharging her to resume her outpatient treatment with [facility], with intake on 2016 and appointment with prescriber, Dr. Cason, on 06/24/2016 at 4pm. She again promised to enter the IOP if she finds herself slipping backwards or becomes frustrated with not moving forward. Patient is currently almost euthymic, affect brighter, with no evidence of suicidal or homicidal ideation, plans, intent or impulses and knows well her safety plan should she find herself at some time in the future feeling at risk for self-harm. Patient is tolerating current medication regimen well without shakiness, tremor, overactivation, etc., and is positive about continuing current med trial. She has been tapered completely off Klonopin over the course of this admission and denies increase in anxiety to date. I have called into [facility], [place], [place] on date of discharge: Wellbutrin SR, 150mg: i daily in AM (150mg/day); #14 with no refill (anti- depressant) [place] carbonate, 300mg: i 2x/day (600mg/day); #28 with no refill (augmenting anti-depressant) Lamictal, 150mg: i nightly at HS (150mg/night); #14 with no refill ( prophylaxis of depression) Trilafon, 4mg: i daily in AM ii nightly HS (12mg/day); #14, no refill (clarify thinking/ augment anti-depressant) patient also discharge on and has adequate supply at home to take: levothyroxine, 125mcg/day (thyroid supplement) Metformin, 1,000mg 2x/day, at 8am and 5pm (regulation of diabetes/glucose levels ) glimepiride, 4mg daily in AM (diabetes) lisinopril, 10mg daily in AM (anti-hypertensive) pravastatin, 40mg nightly at HS (lipid management) anastrozole, 1mg daily in AM (immunosuppression--hx of breast ca) valacyclovir, 500mg daily in AM (skin problems)
--- NOTE | 2016-06-06 15:17 | DISCHARGE SUMMARY REPORT-PSYCH ---
Visit Information Visit Dates/Diagnosis' Admission Date: 05/29/16 Discharge Date: 06/06/16 Reason for Admission: "I don't want to be here [alive on earth] anymore." Psy Discharge Primary Diag: Bipolar Disorder Psy Discharge Secondary Diag: hx of PTSD Hospital Course Significant Lab Findings: glucose = 162, glycos hgb A1c= 7.1; BUN = 20, creatinine = 1.2, GFR = 46; sodium = 134, chloride = 95; triglycerides = 172, HDL = 33, LDL = 58; RBC = 3.74, hgb = 11.2, hct = 33.2; urine for drugs of abuse--negative; serum alcohol level--less than 10.0 (for further details of all normal range laboratory data from this admission, see the electronic medical record) Course Complications: none Consultations: patient was seen for admission medical H&P and followed medically throughout this admission by Gunjan Sanchez M.D. 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 Kuldeep Espino during her admission to [facility] in 09/2015. We decided to begin treatment with a primary anti-depressant but also start treating with/initiate a retrial on a primary mood stabilizer. We started low dose Wellbutrin and a retrial on [place] at least as an augmentation strategy which in lower dosage might be better tolerated; however, current elevations in renal functions warranted very close monitoring during Li+ trial/future treatment. At first, patient was very depresesd and tearful and continued to harbor suicidal thoughts; she continued to be intermittently teary and down for several days but affect gradualy broadened and brightened, mood improved and suicidality resolved completely. She did not experience any significant medication-related side effects to date of discharge and renal functions actually improved, with serum creatinine decreasing from 1.2 to 0.8. Serum [place] levels were 0.3 and 0.5 (the latter on 06/05/2016). At the time of discharge, patient was euthymic and showed no evidence of suicidal or homicidal ideation, plans, intent or impulses and was well aware of her safety plan should she ever in future come to believe herself at acute risk of harming herself or others. Discharge HBIPS - Tobacco Use Treatment Offered Post DC Medications Offered: NA-No Tob Use >30 days Post DC Tobacco Treatment Plan: NA-No Tobacco use >30days - EtOH/Drug Use D/O Treatment Offered Post DC Medications Offered: NA-No EtOH/Drug Use D/O Post DC EtOH/SubAbuse TX Plan: NA-No EtOH/Drug Use D/O Metabolic Screening - Screen if on a Neuroleptic Medication - Metabolic screening should include: - Blood Pressure, BMI, Glucose or Hgb A1c, & a - Lipid profile from within the past 365 days. Metabolic Screening () Not Applicable, patient not on a neuroleptic. OR ([X]) Patient on a neuroleptic(s) . Enter below results for Glucose or Hemoglobin A1C, and lipid panel if obtained during the last 365 days. BMI: 39.300 Blood Pressure: 135/68 Laboratory Results (If applicable): glucose = 162 (on 05/29/2016) glycos hgb A1c = 7.1 cholesterol = 125 triglycerides = 172 HDL = 33 LDL = 58 (all drawn on 05/29/2016) Discharge Instructions General Discharge Information Discharge Medications: Discharge Medications (dose, route, frequency, indications): I have called into [facility], [place], [place]., on date of discharge: Wellbutrin SR, 150mg: i daily in AM (150mg/day); #14 with no refill (anti- depressant) [place] carbonate, 300mg: i 2x/day (600mg/day); #28 with no refill (augmenting anti-depressant) Lamictal, 150mg: i nightly at HS (150mg/night); #14 with no refill ( prophylaxis of depression) Trilafon, 4mg: i daily in AM ii nightly HS (12mg/day); #14, no refill (clarify thinking/ augment anti-depressant) patient also discharge on and has adequate supply at home to take: levothyroxine, 125mcg/day (thyroid supplement) Metformin, 1,000mg 2x/day, at 8am and 5pm (regulation of diabetes/glucose levels ) glimepiride, 4mg daily in AM (diabetes) lisinopril, 10mg daily in AM (anti-hypertensive) pravastatin, 40mg nightly at HS (lipid management) anastrozole, 1mg daily in AM (immunosuppression--hx of breast ca) valacyclovir, 500mg daily in AM (skin problems) Multiple Neuroleptics: ([X]) Not Applicable OR Document below three failed attempts at monotherapy, or a plan to taper to monotherapy, or augmentation of Clozapine. () Patient's Diet: consistent carb 1 Patient's Activity: without restrictions DC Disposition: to home (will be spending most of the next several days "down the street" at her daughter's home with latter and grandchildren) Recommendations: I would not consider increasing current dose of [place] in the near future but highly recommend continuing to closely monitor renal functions and serum [place] levels and encourage PO fluid intake, as well. If patient experiences difficulty in re-establishing stability I would strong advise once again suggesting to patient that she attend the [facility] which she refused to do at this time. Referred To: patient was at her insistence referred directly back to resume her treatment in [facility] with intake appointment scheduled on 06/11/2016 at 3pm (with Savita Bhakta LCSW) and next visit to see Dr. Cason booked for 06/24/2016 at 4pm. Patient also plans to again become more active in her judaism/with her elaine community, as she had been in the past. Copies To: LENORA IQBAL,SOMMER BHAKTA LCSW,SAVITA SANCHEZ MD,GUNJAN
--- NOTE | 2016-06-06 16:54 | SOCIAL WORKER PROG NOTE PSYCH ---
Social Work Progress Note Progress Note Kateryna was anxious to get home today. When asked what she would plan to do, she said she was going to go to her daughter's house and then go home and take a shower and relax. She will go back to her daughter's tomorrow morning and help the kids go off to school. Over the weekend she is planning to go with her daughter to a birthday libertarian. Encouraged her to keep working on her positivity and self-esteem. Denies any SI today. Asked what she would do if she started to have thoughts? She reported that she would call her sister, daughter, or call 911. Told her she was a pleasure to work with. Daughter will pick her up today at 3:30pm.
== END 2016-06-06 15:30 | DRG 885 ==
LOC: ERH 18:05 → CP SOUTH 22:28 → ERHI 22:28 → CP SOUTH 23:34
PROVIDERS: Emergency Medicine; Student in an Organized Health Care Education/Training Program; ADMIT Psychiatry & Neurology Addiction Medicine
DX: F33.3 Major depressive disorder, recurrent, severe with psychotic symptoms (principal); E11.9 Type 2 diabetes mellitus without complications; I10 Essential (primary) hypertension; E03.9 Hypothyroidism, unspecified; E78.5 Hyperlipidemia, unspecified
CPT/HCPCS: 36415; 80307; 82436; 82652; G0480; J3490